=== PATIENT | male | born 1970 | race Caucasian/White ===

== ENCOUNTER 2022-11-26 16:29 | Outpatient (CLI) | payer BC, SELFPAY ==
--- NOTE | ~2022-11-26 | CT_ITS ---
EXAMINATION: CT cervical spine wo con DATE: 11/26/2022 16:53 INDICATION: Cervical radiculopathy TECHNIQUE: Computed tomography (CT) of the cervical spine was performed without intravenous contrast. The dose-length product was 565.91 mGy-cm. Automated exposure control and iterative reconstruction t echnique were employed. COMPARISON: None FINDINGS: There is disc narrowing at C6-7. There are dorsal marginal osteophytes at C5-6 and C6-7. No rmal cervical alignment. Craniovertebral junction is normal. Odontoid process is unremarkable. Promin ent ventral osteophytes at C6-7. No evidence for perched facet. Vertebral body heights are maintained . No fracture or traumatic malalignment. There is mild uncinate degenerative changes at C3-4, C4-5, C 5-6 and C6-7. The following disc levels are specifically discussed: C2-C3: The disc does not extend beyond the endplate margin. There is no uncovertebral joint osteoarth ritis. There is no facet joint osteoarthritis. There is no neural foraminal stenosis. There is no niels tral canal stenosis. C3-C4: The disc does not extend beyond the endplate margin. There is no uncovertebral joint osteoarth ritis. There is right facet joint osteoarthritis. There is right neural foraminal stenosis. There is no central canal stenosis. C4-C5: The disc does not extend beyond the endplate margin. There is no uncovertebral joint osteoarth ritis. There is bilateral facet joint osteoarthritis, right greater than left. There is right neural foraminal stenosis. There is no central canal stenosis. C5-C6: There is mild annular disc bulging. There is no uncovertebral joint osteoarthritis. There is m ild facet joint osteoarthritis. There is no neural foraminal stenosis. There is no central canal sten osis. C6-C7: There are hypertrophic changes of the endplates at C6-7. There is bilateral uncovertebral join t osteoarthritis. There is right facet joint osteoarthritis. There is bilateral neural foraminal sten osis. There is no central canal stenosis. C7-T1: There is mild annular disc bulging. There is no uncovertebral joint osteoarthritis. There is n o facet joint osteoarthritis. There is no neural foraminal stenosis. There is no central canal stenos is. IMPRESSION: 1. Moderate-severe cervical spondylosis. Reviewed, dictated and finalized at location B. AL MILLER
== END 2022-11-26 16:30 | disposition home or self-care (01) ==
PROVIDERS: PCP Family Medicine; Visit Provider Chiropractor
DX: M47.22 Other spondylosis with radiculopathy, cervical region (principal)
CPT/HCPCS: 72125